=== PATIENT | female | born 1980 | race Caucasian/White ===

== ENCOUNTER 2017-01-30 19:35 | Emergency (ER) | payer OTHER ==
[~2017-01-30] VITALS: Ht 167.6 cm; Wt 54.9 kg
[~2017-01-30 19:35] MED LIST: ACET325T51 PO; HYDR2TAB27 PO; IMI25 PO; MULT-1018 PO; ONDA4TAB9 PO; TRAM-14 PO; iron
[2017-01-30 20:01] VITALS: BP 143/87; PULSE 133; PULSE 95; RESP 16; O2SAT 100
--- NOTE | 2017-01-30 22:46 | ED.REPORT ---
HPI-General Illness Date of Service Jan 30, 2017 ED Provider: Tai Mejia DO A 36 year old female with a history of anemia presents to the ED complaining of a possible reaction to a vaccination. The pt had an influenza vaccination in her upper right arm five days ago. Within several hours, she noticed hives developing. A rash then developed near the injection site on her right arm, characterized by redness, tenderness and warmth in her upper right arm spreading into her axilla. She was seen in Urgent Care the next morning and diagnosed with an allergic reaction and early cellulitis. She was prescribed Prednisone and Cephalexin and has been taking these normally since. The redness and warmth have decreased but the tenderness throughout her arm has remained. The pt has been taking Tylenol and ibuprofen to treat the pain. Nursing Notes Stated Complaint: BAD REACTION TO FLU SHOT,NON IMPROVING SYMPTOMS Chief Complaint: Skin Rash/Abscess Nursing Notes Reviewed: Yes Allergies: Coded Allergies: Sulfa (Sulfonamide Antibiotics) (Verified Allergy, Severe, 01/30/17) morphine (Verified Allergy, Unknown, swelling, 01/30/17) Scheduled ([iron]) Unknown Dose DAILY Multivitamin (Multi Vitamin Daily) 1 Each Tablet 1 EACH PO DAILY Scheduled PRN Acetaminophen (Acetaminophen) 325 Mg Tablet 325 MG PO Q4H PRN PRN For Fever Hydromorphone (Dilaudid) 2 Mg Tablet 2 MG PO Q4H PRN PRN Pain Ondansetron ODT (Zofran ODT) 4 Mg Tablet 4 MG PO Q4H PRN PRN For Nausea Sumatriptan (Imitrex) 25 Mg Tablet 100 MG PO PRN migraines MR after 2 hrs/NTE 200mg/24hrs Tramadol (Ultram) 50 Mg Tablet 50 MG PO Q4H PRN PRN For Mild Pain General Time Seen by MD: 22:46 Chief Complaint Other (Possible medication reaction) Hx Obtained From: Patient Arrived By: Walk-in Sudden in Onset?: No Onset Occurred: 4 days ago Symptom Duration: Since onset Recent Healthcare: Recent doctor visit Similar Sx Previous: No Past Medical History Past Medical History Anemia Distant asthma Kidney stones Past Surgical History hysterectomy 08/[address] Waters Lumpectomy Reports: Appendectomy, (x2) Smoking History Former Smoker Social History Alcohol Use: "Social" Drug Use: Denies drug use Other Social History: Ambulatory Status Independent Review of Systems Full Review of Systems Respiratory: Denies: Non-productive cough, Shortness of breath Cardiovascular: Denies: Chest pain GI: Denies: Abdominal pain, Vomiting Musculoskeletal: Reports: Extremity pain, Denies: Back pain, Neck pain Skin: Reports Rash Complete sys rev & neg: except as marked. Physical Exam Vital Signs Vital Signs Date Time Temp Pulse Resp B/P Pulse Ox O2 Delivery O2 Flow Rate FiO2 01/31/17 00:45 37.1 66 107/69 99 Room Air 01/30/17 20:01 37.5 95 16 143/87 100 Room Air Initial VS: Reviewed General/Constitutional: Awake, Alert Head / Eyes: Atraumatic, Normocephalic, PERRL, EOMI ENT: Atraumatic, Airway patent, Mucous membranes moist Neck: Atraumatic, Supple, Full range of motion Respiratory / Chest: Atraumatic, Breath sounds NL, Breath sounds = bilat, No respiratory distress Cardiovascular: Heart rate NL, Regular rhythm, Heart sounds NL Abdomen: Atraumatic, Soft, Non-tender Back: Atraumatic, Full range of motion Upper Extremities Upper Extremity / MS: Full range of motion, Neurologic intact, Vascular intact mild, diffuse erythema over the right lateral upper arm tender nodule in the area of the injection no axillary lymphadenopathy tenderness of the axilla without rash clavicular tenderness Lower Extremity / Pelvis / MS: Atraumatic, Full range of motion Skin: Color NL, Warm, Dry Neurologic: Oriented X3, Speech NL, No motor deficits, No sensory deficits Psychiatric: Affect NL, Mood NL Interpretation & Diagnostics Lab Results Interpretation Result Diagram: 01/31/17 0005 Test 01/31/17 00:02 01/31/17 00:05 Hold Covarrubias Top Tube Received (Received) White Blood Count 8.1th/mm3 (3.8-10.1) Red Blood Count 4.58mil/mm3 (3.90-5.20) Hemoglobin 13.4g/dL (12.0-15.6) Hematocrit 38.1% (35.0-46.0) Mean Corpuscular Volume 83.2fL (81-100) Mean Corpuscular Hemoglobin 29.3pg (27.0-35.0) Mean Corpuscular Hemoglobin Concent 35.2% (32.0-37.0) Red Cell Distribution Width 12.5% (12.3-15.4) Platelet Count 293bil/L (150-400) Neutrophils (%) (Auto) 84.7% (40-74) Lymphocytes (%) (Auto) 10.7% (14-46) Monocytes (%) (Auto) 4.3% (4-12) Eosinophils (%) (Auto) 0% (0-5) Basophils (%) (Auto) 0.1% (0-3) Erythrocyte Sedimentation Rate 11mm/hr (0-32) C-Reactive Protein 0.3mg/dL (0.0-0.5) Re-Eval/Medical Decision Source of Hx: Old records Time of Eval: 00:27 Patient Status: Condition improved Re-Evaluation/Progress Note: Pt rechecked, who is comfortable. The diagnosis and plan for discharge are discussed. The pt understands and agrees with the plan. All questions are addressed at this time. Counseled Regarding: Diagnosis, Need for follow-up, When/why to return to ED Discharge & Departure Primary Impression: Vaccine reaction Encounter type: initial encounter Qualified Code: T50.Z95A - Adverse effect of other vaccines and biological substances, initial encounter Additional Impression: Cellulitis Site of cellulitis: extremity Site of cellulitis of extremity: upper extremity Laterality: right Qualified Code: L03.113 - Cellulitis of right upper limb Disposition: Home Discharge Condition All VS Reviewed: Yes Condition: Stable Patient Instructions: Cellulitis (ED) Additional Instructions: Thank you for entrusting us with your care. Your evaluation was reassuring. If you had an infection/cellulitis it appears to be improving based on your lab work today. Finish your Prednisone and Cephalexin as prescribed. Call your primary care physician to arrange a follow up appointment in the next several days. Consider an MRI if your symptoms do not improve. Return to the emergency department if you develop any new or worsening symptoms. Referrals: RAVINDER SERVIN (PCP) Scribe Attestation Portions of this note were transcribed by Peewee Duenas. I, Dr. Mejia personally performed the history, physical exam and medical decision-making; I reviewed and confirmed the accuracy of the information in the transcribed note. copies to: RAVINDER SERVIN Gary R DO Jan 30, 2017 22:46 PEEWEE DUENAS Jan 30, 2017 23:46
[2017-01-30] MEDS ORDERED: Trimethoprim-Sulfa 160 mg-800 mg Tablet PO ONE (23:50)
[2017-01-31 00:08] LABS: BASOPHILS % (AUTO) 0.1 % (0-3); EOSINOPHILS % (AUTO) 0 % (0-5); MONOCYTES % (AUTO) 4.3 % (4-12); Mean Corpuscular Hemoglobin 29.3 pg (27.0-35.0); Mean Corpuscular Volume 83.2 fL (81-100); NEUTROPHILS % (AUTO) 84.7 % (40-74); Platelet Count 293 bil/L (150-400)
[2017-01-31 00:24] LABS: ERYTHROCYTE SEDIMENTATION RATE 11 mm/hr (0-32)
[2017-01-31 00:45] VITALS: BP 107/69; PULSE 66; O2SAT 99
== END 2017-01-31 00:47 | disposition home or self-care (01) ==
LOC: SED 19:35
DX: L03.113 Cellulitis of right upper limb (principal); T50.Z95A Adverse effect of other vaccines and biological substances, initial encounter; L50.9 Urticaria, unspecified; Y93.89 Activity, other specified; Y92.89 Other specified places as the place of occurrence of the external cause; Y99.8 Other external cause status; J45.909 Unspecified asthma, uncomplicated; Z87.442 Personal history of urinary calculi; Z90.710 Acquired absence of both cervix and uterus; Z98.890 Other specified postprocedural states; Z87.891 Personal history of nicotine dependence; Z88.2 Allergy status to sulfonamides; Z88.5 Allergy status to narcotic agent
CPT/HCPCS: 36415; 85025; 85651; 86140; 99283; G0463